=== PATIENT | female | born 1950 | race Caucasian/White ===

== ENCOUNTER → 2017-01-31 | Outpatient (CLI) | payer MEDICARE, OTHER ==
--- NOTE | 2017-01-31 17:19 | RADIOLOGY REPORT PS360 ---
CHEST(2 VIEWS-NOT PORTABLE) Ordering physician: Elida Booker APRN Age: 66 years Female INDICATION: Cough 3 monthsCOUGH PROCEDURE: CHEST(2 VIEWS-NOT PORTABLE) FINDINGS: No previous studies Lungs well expanded and clear with nothing definitely acute. No pneumothorax. No pleural effusion. Heart normal size. Normal pulmonary vascularity. . mediastinal structures appear satisfactory. Left joan upper normal prominence. Right joan unremarkable. Mild elevation right hemidiaphragm. Small thin partially calcified granuloma likely just the thin linear density towards the left apex interspace measuring 12 mm x 2.5 mm.. This can be followed Chest wall unremarkable. T-spine intact. IMPRESSION ----- nothing definitely acute. . .. Small likely is a calcified granuloma at left upper lung
--- NOTE | 2017-01-31 17:19 | RADIOLOGY REPORT PS360 ---
CHEST(2 VIEWS-NOT PORTABLE) Ordering physician: Elida Booker APRN Age: 66 years Female INDICATION: Cough 3 monthsCOUGH PROCEDURE: CHEST(2 VIEWS-NOT PORTABLE) FINDINGS: No previous studies Lungs well expanded and clear with nothing definitely acute. No pneumothorax. No pleural effusion. Heart normal size. Normal pulmonary vascularity. . mediastinal structures appear satisfactory. Left joan upper normal prominence. Right jona unremarkable. Mild elevation right hemidiaphragm. Small thin partially calcified granuloma likely just the thin linear density towards the left apex interspace measuring 12 mm x 2.5 mm.. This can be followed Chest wall unremarkable. T-spine intact. IMPRESSION ----- nothing definitely acute. . .. Small likely is a calcified granuloma at left upper lung
== END ==
LOC: RAD 08:59
DX: R05 Cough (principal)